=== PATIENT | female | born 1985 | race Caucasian/White ===

== ENCOUNTER 2016-11-10 05:13 | Emergency (ER) | payer BC ==
[~2016-11-10] VITALS: Ht 185.4 cm; Wt 81.3 kg
[2016-11-10 05:19] VITALS: TEMP 36.6; Ht 185.4 cm; Wt 81.3 kg
[2016-11-10 05:55] LABS: BASO % 0.2 %; BASO ABS # 0.02 K/uL (0-0.2); COMPLETE YES; EOS % 0.7 %; HEMATOCRIT 36.4 % (37-47); IG% 0.3 %; LYMPH % 22.6 %; LYMPH ABS # 2.21 K/uL (1.2-3.4); MEAN CELL VOLUME 87.9 fL (80-100); MEAN CORPUSCULAR HEMOGLOBIN 31.4 pg (25-34); MEAN CORPUSCULAR HGB CONC 35.7 g/dl (32-36); MEAN PLATELET VOLUME 10.6 fL (7.4-10.4); MONO % 6.5 %; NEUT % 69.7 %; PLATELET COUNT 200 K/uL (130-400); RED BLOOD COUNT 4.14 M/uL (4.2-5.4); WHITE BLOOD COUNT 9.78 K/uL (4.8-10.8)
[2016-11-10 05:56] LABS: URINE APPEARANCE CLEAR (CLEAR); URINE BILIRUBIN NEG (NEG); URINE COLOR YELLOW; URINE NITRITE NEG (NEG); URINE PH 6.5 (4.5-7.5); URINE SPECIFIC GRAVITY 1.018 (1.000-1.030); UROBILINOGEN NEG (NEG); ZZUR CULT IF INDIC CLEAN CATCH NO
[2016-11-10 06:00] LABS: MANUAL MICROSCOPIC REQUIRED? NO; REVIEW REQ? NO
[2016-11-10 06:14] LABS: BUN/CREATININE RATIO 12.7 (10-20); CALCIUM 8.8 mg/dl (8.5-10.1); CREATININE 0.66 mg/dl (0.60-1.20); POTASSIUM 3.5 mmol/L (3.5-5.1)
[2016-11-10 06:17] LABS: ALB/GLOB RATIO 0.9 (0.9-2)
[2016-11-10] MEDS ORDERED: PRENTAB26 PO (06:30)
[2016-11-10 06:39] VITALS: BP 98/62; PULSE 62; O2SAT 98
--- NOTE | 2016-11-10 08:11 | DIAGNOSTIC IMAGING REPORT ---
LIMITED (US) CLINICAL HISTORY: and vaginal bleeding COMPARISON STUDY: No previous studies for comparison. FINDINGS: A single alive intrauterine gestation was visualized. The crown-rump rump length measured 4.6 cm corresponding to an estimated postmenstrual age of 11 weeks and 3 days. The heart rate is 163. The maternal cervix was closed. The maternal right ovary was not visualized. The maternal left ovary containing a 2.2 cm cyst. 3 subchorionic hematomas were visualized. These measured 3.1 x 3 x 1 cm, 2.6 x 1.2 x 1.8 cm and 4 x 1.1 x 1.8 cm. IMPRESSION: 1. Single live intrauterine gestation. The estimated postmenstrual age is 11 weeks and 3 days 2. 3 subchorionic hematomas were visualized. Electronically signed by: Judah Singh M.D. 11/10/2016 8:09 AM Dictated Date/Time: 11/10/2016 8:06 AM
--- NOTE | 2016-11-13 20:32 | EMERGENCY ROOM VISIT NOTE ---
History First contact with patient: 05:25 Chief Complaint: VAGINAL BLEEDING Stated Complaint: 11 WKS PREG, CRAMPING/BLEEDING. L&D SAID USE ER History of Present Illness The patient is a 31 year old female who presents to the Emergency Room with complaints of vaginal bleeding that began 2-3 hours ago. The patient is 11 weeks , and she states that she had similar episode to this last week. The patient used in vitro fertilization for this with her . They live in [place] and [place], and are here locally for a . The patient states that she has had some darkish red blood that soaked through a pad. She is having some mild cramping and bloating. The patient has not had fever or chills. No nausea or vomiting. Review of Systems More than 10 systems were reviewed and otherwise negative with the exception of history of present illness. Past Medical/Surgical History No pertinent chronic medical disease Family History No pertinent family history Social History Smoking Status: Never Smoker Housing Status: lives with family Current/Historical Medications Scheduled Multivit/Min/Iron/Fol Ac/Pren ( Vitamin), 1 TAB PO DAILY Allergies Coded Allergies: No Known Allergies (Unverified , 11/10/16) Physical Exam Vital Signs Date Time Temp Pulse Resp B/P Pulse Ox O2 Delivery O2 Flow Rate FiO2 11/10/16 06:39 62 16 98/62 98 Room Air 11/10/16 05:19 36.6 93 16 116/65 98 Room Air Pain Rating (0-10): 0 Physical Exam VITALS: Vitals are noted on the nurse's note and reviewed by myself. Vital signs stable. GENERAL: Well-developed, well-nourished, white female, who is in no acute distress and resting comfortably. Patient is cooperative with the examination. HEAD: Normocephalic atraumatic. HEART: Regular rate and rhythm without murmurs gallops or rubs. LUNGS: Clear to auscultation bilaterally without wheezes, rales or rhonchi. No retractions or accessory muscle use. ABDOMEN: Positive normal bowel sounds x 4. Soft, nontender, without masses or organomegaly. No guarding or rebound tenderness. MUSCULOSKELETAL: No muscle atrophy, erythema, or edema noted. Full range of motion without joint tenderness in all extremities. Medical Decision & Procedures ER Provider Diagnostic Interpretation: LIMITED (US) CLINICAL HISTORY: and vaginal bleeding COMPARISON STUDY: No previous studies for comparison. FINDINGS: A single alive intrauterine gestation was visualized. The crown-rump rump length measured 4.6 cm corresponding to an estimated postmenstrual age of 11 weeks and 3 days. The heart rate is 163. The maternal cervix was closed. The maternal right ovary was not visualized. The maternal left ovary containing a 2.2 cm cyst. 3 subchorionic hematomas were visualized. These measured 3.1 x 3 x 1 cm, 2.6 x 1.2 x 1.8 cm and 4 x 1.1 x 1.8 cm. IMPRESSION: 1. Single live intrauterine gestation. The estimated postmenstrual age is 11 weeks and 3 days 2. 3 subchorionic hematomas were visualized. Laboratory Results 11/10/16 05:36 Red Blood Count 4.14, Mean Corpuscular Volume 87.9, Mean Corpuscular Hemoglobin 31.4, Mean Corpuscular Hemoglobin Concent 35.7, Mean Platelet Volume 10.6, Neutrophils (%) (Auto) 69.7, Lymphocytes (%) (Auto) 22.6, Monocytes (%) (Auto) 6.5, Eosinophils (%) (Auto) 0.7, Basophils (%) (Auto) 0.2, Neutrophils # (Auto) 6.81, Lymphocytes # (Auto) 2.21, Monocytes # (Auto) 0.64, Eosinophils # (Auto) 0.07, Basophils # (Auto) 0.02 11/10/16 05:36 Test 11/10/16 05:35 11/10/16 05:36 Urine Color YELLOW Urine Appearance CLEAR (CLEAR) Urine pH 6.5 (4.5-7.5) Urine Specific [place] 1.018 (1.000-1.030) Urine Protein NEG (NEG) Urine Glucose (UA) NEG (NEG) Urine Ketones NEG (NEG) Urine Occult Blood NEG (NEG) Urine Nitrite NEG (NEG) Urine Bilirubin NEG (NEG) Urine Urobilinogen NEG (NEG) Urine Leukocyte Esterase NEG (NEG) White Blood Count 9.78 K/uL (4.8-10.8) Red Blood Count 4.14 M/uL (4.2-5.4) Hemoglobin 13.0 g/dL (12.0-16.0) Hematocrit 36.4 % (37-47) Mean Corpuscular Volume 87.9 fL (80-100) Mean Corpuscular Hemoglobin 31.4 pg (25-34) Mean Corpuscular Hemoglobin Concent 35.7 g/dl (32-36) Platelet Count 200 K/uL (130-400) Mean Platelet Volume 10.6 fL (7.4-10.4) Neutrophils (%) (Auto) 69.7 % Lymphocytes (%) (Auto) 22.6 % Monocytes (%) (Auto) 6.5 % Eosinophils (%) (Auto) 0.7 % Basophils (%) (Auto) 0.2 % Neutrophils # (Auto) 6.81 K/uL (1.4-6.5) Lymphocytes # (Auto) 2.21 K/uL (1.2-3.4) Monocytes # (Auto) 0.64 K/uL (0.11-0.59) Eosinophils # (Auto) 0.07 K/uL (0-0.5) Basophils # (Auto) 0.02 K/uL (0-0.2) RDW Standard Deviation 40.3 fL (36.4-46.3) RDW Coefficient of Variation 12.5 % (11.5-14.5) Immature Granulocyte % (Auto) 0.3 % Immature Granulocyte # (Auto) 0.03 K/uL (0.00-0.02) Anion Gap 10.0 mmol/L (3-11) Est Creatinine Clear Calc Drug Dose 145.6 ml/min Estimated GFR () 135.5 Estimated GFR (Non- 116.9 BUN/Creatinine Ratio 12.7 (10-20) Calcium Level 8.8 mg/dl (8.5-10.1) Total Bilirubin 0.3 mg/dl (0.2-1) Aspartate Amino Transf (AST/SGOT) 8 U/L (15-37) Alanine Aminotransferase (ALT/SGPT) 22 U/L (12-78) Alkaline Phosphatase 36 U/L (45-117) Total Protein 7.6 gm/dl (6.4-8.2) Albumin 3.6 gm/dl (3.4-5.0) Globulin 4.0 gm/dl (2.5-4.0) Albumin/Globulin Ratio 0.9 (0.9-2) ED Course Physical exam and history were performed. Nursing notes and EMR were reviewed. Patient appears to have vaginal bleeding in first trimester. IV access was established and labs were obtained. The patient was sent to ultrasound, and this was performed. The patient's blood work is as above and was reviewed. She does not have a significantly elevated white blood cell count, anemia, bandemia, or gross electrolyte imbalance. Urine is without evidence of infection. The ultrasound does show a viable intrauterine . The patient has multiple areas of subchorionic bleed, and evidently based on her history of these are similar to where they were last week. I discussed the case with the on-call BUSINESS CONTINUITY ANALYST, who recommended watchful waiting and rest for the patient. The patient does appear stable for discharge home. She is not in significant pain and her bleeding has slowed here in the ER. We had a lengthy discussion regarding further options of care, and I did explain the importance of rest and BUSINESS CONTINUITY ANALYST follow-up at home. The patient is comfortable with this, especially with knowing the be viable. The patient will be in town for the next few days and was otherwise invited back to the ER with any new, worsening, or concerning symptoms The chart was completed utilizing [employer] Speech Voice Recognition Software. Grammatical errors, random word insertions, pronoun errors, and incomplete sentences are an occasional consequence of this system due to software limitations, ambient noise, and hardware issues. Any formal questions or concerns about the content, text, or information contained within the body of this dictation should be directly addressed to the provider for clarification. . Medical Decision Differential diagnosis: Etiologies such as ectopic , dysfunction uterine bleeding, bleeding dyscrasia, trauma, infection, as well as others were entertained. Impression Primary Impression: Vaginal bleeding in patient at less than 20 weeks ges... Departure Information Dispostion Home / Self-Care Condition GOOD Forms HOME CARE DOCUMENTATION FORM, IMPORTANT VISIT INFORMATION Patient Instructions My [facility] Additional Instructions You were seen and evaluated today on an emergency basis only. This is not a substitute for, or an effort to provide, complete comprehensive medical care. It is not possible to recognize and treat all injuries or illnesses in a single emergency department visit. For this reason it is recommended that you followup with your BUSINESS CONTINUITY ANALYST office as soon as possible for ongoing care and evaluation. Rest and avoid any excess physical activity. You are welcome to return to the emergency department anytime with new, worsening, or concerning symptoms.
== END 2016-11-10 07:20 | disposition home or self-care (01) ==
LOC: C.EDB 05:15
DX: O46.91 Antepartum hemorrhage, unspecified, first trimester (principal)